=== PATIENT | male | born 1990 | race Caucasian/White ===

== ENCOUNTER 2016-07-14 07:57 | Emergency (ER) | payer OTHER ==
[2016-07-14 08:04] VITALS: BP 137/78; PULSE 60; TEMP 98.6; BMI 25.5
[2016-07-14] MEDS ORDERED: KETOROLAC TROMETHAMINE 60 MG/2 ML VIAL IM ONE (08:38)
[2016-07-14] MEDS ORDERED: KETOROLAC TROMETHAMINE 60 MG/2 ML VIAL ONE (08:39)
--- NOTE | 2016-07-14 08:43 | PDOC ---
History of Present Illness - General Chief Complaint: Back Pain Stated Complaint: BACK PAIN Time Seen by Provider: 07/14/16 08:20 History Source: Patient Exam Limitations: No Limitations - History of Present Illness Initial Comments: 07/14/16 08:38 Patient came to emergency department with exacerbation of worsening of his chronic back pain over the past 2 days. Patient states has not been taking his medication is trying to avoid using so much Percocet and doesn't sure if whether that caused re-exacerbation. Patient denies fever, denies bowel or bladder changes, denies any recent trauma, heavy lifting or exercise changes. States is the same at his back pain just is worsening. States original was from chronic injuries from working for [employer]. 07/14/16 08:47 Occurred: reports: yesterday Severity: reports: moderate, severe Pain Location: reports: back Modifying Factors: improves with: None Associated Symptoms (Fall): denies symptoms Past History - Travel Traveled outside of the country in the last 30 days: No Close contact w/someone who was outside of country & ill: No - Past Medical History Allergies/Adverse Reactions: Allergies Allergy/AdvReac Type Severity Reaction Status Date / Time No Known Allergies Allergy Verified 07/14/16 08:04 Home Medications: Ambulatory Orders NK [No Known Home Medication] 01/17/16 - Psycho/Social/Smoking Cessation Hx Anxiety: No Suicidal Ideation: No Smoking Status: Yes Smoking History: Never smoked Number of Cigarettes Smoked Daily: 1 Hx Alcohol Use: No Drug/Substance Use Hx: No Substance Use Type: None Trauma Specific PMHX - Complaint Specific PMHX Back Injury: Yes Review of Systems - Review of Systems Able to Perform ROS?: Yes Is the patient limited [place] proficient: Yes Constitutional: Yes: Symptoms Reported, See HPI, Malaise. No: Fever, Loss of Appetite HEENTM: No: Symptoms Reported Respiratory: No: Symptoms reported Musculoskeletal: Yes: Symptoms Reported, See HPI, Back Pain, Muscle Weakness Integumentary: No: Symptoms Reported Neurological: Yes: Symptoms reported, See HPI, Headache All Other Systems: Reviewed and Negative *Physical Exam - Vital Signs Last Vital Signs Temp Pulse Resp BP Pulse Ox 98.6 F 60 20 137/78 99 07/14/16 08:01 07/14/16 08:01 07/14/16 08:01 07/14/16 08:07/14/16 08:01 - Physical Exam General Appearance: Yes: Nourished, Appropriately Dressed, Apparent Distress, Mild Distress HEENT: positive: JESSICA, Normal ENT Inspection, TMs Normal Neck: positive: Tender, Supple. negative: Lymphadenopathy (R), Lymphadenopathy (L) Respiratory/Chest: positive: Lungs Clear, Normal Breath Sounds Cardiovascular: positive: Regular Rhythm Gastrointestinal/Abdominal: positive: Soft Extremity: positive: Normal Inspection. negative: Normal Range of Motion ( limited range of motion secondary to tenderness to his low back, mild spasm noted), Tender Integumentary: positive: Normal Color, Dry, Warm, Pale Neurologic: positive: director child II-XII NML intact, Fully Oriented, Alert, Normal Mood/ Affect, Normal Response, Motor Strength 11/12 Progress Note - Progress Note Progress Note: Patient participating in a pain management program and has appointment with physician on Tuesday. States has Percocet at home but wasn't sure if there was something that unchanged. Understands will not prescribe narcotics, but will provide Toradol as an anti-inflammatory and have patient continue his regime as directed *DC/Admit/Observation/Transfer Diagnosis at time of Disposition: Back pain Qualifiers: Back pain location: low back pain Chronicity: chronic Back pain laterality: unspecified Sciatica presence: with sciatica Sciatica laterality: sciatica laterality unspecified Qualified Code(s): M54.40 - Lumbago with sciatica, unspecified side - Discharge Dispostion Admit: No - Patient Instructions Printed Discharge Instructions: Managing Chronic Low Back Pain Additional Instructions: Rest, no heavy lifting or exercise until pain is resolved Hot soaks to neck and low back as often as possible/hot showers or Jacuzzis No massage or therapy until spasm is gone Continue ibuprofen 2-200 mg tablets every 6 hours for the next 3 days then as needed for pain and swelling Continue pain medications as prescribed by pain management If not significant improvement within 24 hours with medication and rest regime, followup with private physician for change in medications and /or therapy. - Post Discharge Activity Work/School Note: Back to Work
== END 2016-07-14 08:51 | disposition home or self-care (01) ==
LOC: JERFT 07:57
PROC: 3E0233Z Introduction of Anti-inflammatory into Muscle, Percutaneous Approach (ICD-10-PCS; principal; 2016-07-14)
DX: M54.40 Lumbago with sciatica, unspecified side (principal); G89.29 Other chronic pain
CPT/HCPCS: 99281-25

== ENCOUNTER → 2016-12-22 | Emergency (ER) | payer SELFPAY ==
[2016-12-22 19:23] VITALS: BMI 23.1
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
[2016-12-22 23:25] VITALS: BP 124/76; PULSE 66; TEMP 97.7
== END | disposition home or self-care (01) ==
LOC: JER 19:16
DX: F34.81 Disruptive mood dysregulation disorder (principal)
CPT/HCPCS: 99282-25